=== PATIENT | female | born 1945 | race Asian ===

== ENCOUNTER 2023-07-17 08:30 | Inpatient (IN) | payer OTHER, MEDICARE ==
[2023-07-11 11:13] VITALS: BMI 22.6
[2023-07-24] MEDS ORDERED: CEFAZOLIN 2 GM in DEXTROSE 5%-WATER - 50 ML IVPB ONE (10:00)
[2023-07-24] MEDS ORDERED: BUPIVACAINE HCL/PF 0.5% (5MG/ML) 10 ML VIAL ONE (10:02)
[2023-07-24] MEDS ORDERED: ACETAMINOPHEN INJECTION 100 ML IVPB ONE (10:02)
[2023-07-24] MEDS ORDERED: MIDAZOLAM HCL 2 MG/2 ML SINGLE DOSE VIAL ONE ×2 (10:02→11:26)
[2023-07-24] MEDS ORDERED: BUPIVACAINE LIPOSOME/PF (EXPAREL) 266 MG/20 ML VIAL ONE (10:02)
[2023-07-24] MEDS ORDERED: FENTANYL CITRATE/PF 50 MCG/ML VIAL ONE (10:02)
[2023-07-24] MEDS ORDERED: MAGNESIUM HYDROX 2400MG/30ML ORAL SUSPENSION 30 ML CUP PO PRN (10:44)
[2023-07-24] MEDS ORDERED: oxyCODONE HCL 5 MG TABLET PO PRN (10:44)
[2023-07-24] MEDS ORDERED: MAG HYDROX/AL HYDROX/SIMETH 30 ML UNIT-DOSE CUP PO PRN (10:44)
[2023-07-24] MEDS ORDERED: PROPOFOL 20 ML ONE (10:54)
[2023-07-24] MEDS ORDERED: ceFAZolin SODIUM 1 GM VIAL ONE ×2 (10:56)
[2023-07-24] MEDS ORDERED: ACETAMINOPHEN 325 MG TABLET (FP) PO PRN (12:15)
[2023-07-24] MEDS ORDERED: LACTATED RINGERS SOLUTION 1,000 ML IV SCH (13:30)
[2023-07-24] MEDS: ONDANSETRON 4 MG/2 ML VIAL IVPUSH PRN (15:42)
[2023-07-24] MEDS: ACETAMINOPHEN 1000 MG/100 ML BAG IVPB SCH (17:03)
[2023-07-24] MEDS: INSULIN ASPART SLIDING SCALE (NOVOLOG) 1 VIAL SQ SCH (17:09)
[2023-07-24] MEDS: CEFAZOLIN SODIUM 2 GM in DEXTROSE 5%-WATER 100 ML IVPB SCH (17:26)
[2023-07-24] MEDS: oxyCODONE HCL 5 MG TABLET PO PRN (17:26)
[2023-07-24] MEDS: DEXAMETHASONE 4 MG TABLET (FP) PO ONE (17:26)
[2023-07-24] MEDS: TRANEXAMIC ACID 1000 MG/10 ML VIAL IVPUSH ONE ×2 (17:46→18:54)
[2023-07-24 18:43] VITALS: RESP 18
[2023-07-24] MEDS: CELECOXIB 100 MG CAPSULE PO SCH (21:23)
[2023-07-24] MEDS: SENNOSIDES/DOCUSATE COMBO (SENNA PLUS) TABLET (UD) PO SCH (21:24)
[2023-07-24] MEDS: PIOGLITAZONE HCL 15 MG TABLET PO SCH (21:24)
[2023-07-24] MEDS: FAMOTIDINE 20 MG TABLET PO SCH (21:24)
[2023-07-24] MEDS: ASPIRIN 81 MG CHEWABLE TABLETS PO SCH (21:24)
[2023-07-24] MEDS: ASCORBIC ACID 500 MG TABLET (FP) PO SCH (21:24)
[2023-07-24] MEDS: ATORVASTATIN CA 80 MG TABLET (FP) PO SCH (21:24)
[2023-07-24] MEDS: LATANOPROST 0.005% OPHTH SOLN 2.5ML BOTTLE OU SCH (21:27)
[2023-07-24] MEDS: KETOROLAC TROMETHAMINE 15 MG/ML VIAL IVPUSH PRN (22:00)
[2023-07-25 06:45] VITALS: PULSE 72
[2023-07-25] MEDS: CYANOCOBALAMIN 1,000 MCG TABLET (FP) PO SCH (08:51)
[2023-07-25] MEDS: CLOPIDOGREL BISULFATE 75 MG TABLET (FP) PO SCH (08:52)
[2023-07-25] MEDS: EMPAGLIFLOZIN (JARDIANCE) 10 MG TABLET PO SCH (08:52)
[2023-07-25] MEDS: MULTIVITAMINS (DAILY MVI) TABLET (FP) PO SCH (08:53)
[2023-07-25] MEDS: DEXAMETHASONE 4 MG TABLET (FP) PO ONE (08:55)
[2023-07-25] MEDS ORDERED: TIMOLOL 0.5% OPHTHALMIC SOL 5 ML BOTTLE OU SCH (10:00)
[2023-07-25] MEDS ORDERED: PATIENT'S OWN MEDICATION (NON-FORMULARY) (Multivitamin [Multivitamin] 1 EACH Tablet) PO SCH (10:00)
[2023-07-25 10:26] VITALS: BP 97/59; TEMP 97.8
[2023-07-25] MEDS: TRANEXAMIC ACID 1000 MG/10 ML VIAL IVPUSH ONE (11:51)
== END 2023-07-25 15:36 | disposition home or self-care (01) | DRG 470 ==
LOC: FM/S 07-24 09:03
PROVIDERS: ADMIT Orthopaedic Surgery; ATTEND Orthopaedic Surgery
PROC: 0SRC0JZ Replacement of Right Knee Joint with Synthetic Substitute, Open Approach (ICD-10-PCS; principal; 2023-07-24 11:14)
DX: M17.11 Unilateral primary osteoarthritis, right knee (principal)
CPT/HCPCS: 73560-TC-RT-FY; 82962; 94760; 97010-GP; 97116-GP; 97162-GP; C1776; C1889; J0131